=== PATIENT | male | born 1985 | race Caucasian/White ===

== ENCOUNTER 2025-05-28 10:44 | Emergency (ER) | payer BC ==
[~2025-05-28] VITALS: Ht 175.3 cm; Wt 86.2 kg
[2025-05-28] MEDS ORDERED: TDAP [DIPH/PERTUSSIS/TET] 0.5 ML VIAL IM ONE (12:31)
[2025-05-28] MEDS: TDAP [DIPH/PERTUSSIS/TET] 0.5 ML VIAL IM ONE (12:37)
[2025-05-28 12:54] VITALS: BP 132/79; TEMP 98.7; O2SAT 100
== END 2025-05-28 12:46 | disposition home or self-care (01) ==
LOC: ER 11:01
DX: S01.01XA Laceration without foreign body of scalp, initial encounter (principal); I10 Essential (primary) hypertension; W20.8XXA Other cause of strike by thrown, projected or falling object, initial encounter; Y93.89 Activity, other specified; Y92.89 Other specified places as the place of occurrence of the external cause; Y99.8 Other external cause status
CPT/HCPCS: 12002; 90471; 90715; 99283; A6403

== ENCOUNTER 2025-06-01 10:03 | Emergency (ER) | payer BC ==
[~2025-06-01] VITALS: Ht 175.3 cm; Wt 83.9 kg
[2025-06-01 13:29] VITALS: BP 138/82; TEMP 98.5; O2SAT 99
== END 2025-06-01 13:13 | disposition home or self-care (01) ==
LOC: ER 10:14
DX: R51.9 Headache, unspecified (principal); R42 Dizziness and giddiness; R20.2 Paresthesia of skin; F07.81 Postconcussional syndrome; I10 Essential (primary) hypertension
CPT/HCPCS: 70450-TC